=== PATIENT | male | born 1970 | race Caucasian/White ===

== ENCOUNTER 2022-03-22 08:44 | Emergency (ER) | payer OTHER ==
[2022-03-22 08:54] VITALS: BP 151/73; PULSE 91; TEMP 98.3; BMI 34.2
[2022-03-22] MEDS ORDERED: IBUPROFEN 400 MG TABLET (FP) PO ONE ×2 (08:58→09:04)
== END 2022-03-22 09:50 | disposition home or self-care (01) ==
LOC: FER 08:44
DX: M25.562 Pain in left knee (principal)
CPT/HCPCS: 73560-TC-LT-FY; 99283-25